=== PATIENT | female | born 1965 | race Caucasian/White ===

== ENCOUNTER 2019-08-14 06:50 | Inpatient (IN) | payer OTHER ==
[~2019-08-14] VITALS: Ht 61 cm; Wt 5.0 kg
== END 2019-08-15 07:40 | disposition home or self-care (01) | DRG 580 ==
LOC: CIR.AMB 06:50 → EDSTATUS 08:00 → CIR.AMB 08:00 → SURG 08:00 → CIR.AMB 12:00 → SURH 14:52
PROVIDERS: ADMIT Specialist
PROC: 07B50ZZ Excision of Right Axillary Lymphatic, Open Approach (ICD-10-PCS; 2019-08-14)
PROC: 0HBT0ZZ Excision of Right Breast, Open Approach (ICD-10-PCS; principal; 2019-08-14 12:00)
DX: C50.811 Malignant neoplasm of overlapping sites of right female breast (principal); C77.3 Secondary and unspecified malignant neoplasm of axilla and upper limb lymph nodes

== ENCOUNTER 2019-09-01 07:40 | Inpatient (IN) | payer OTHER ==
[~2019-09-01] VITALS: Ht 157.5 cm; Wt 61.2 kg
== END 2019-09-03 09:27 | disposition home or self-care (01) | DRG 582 ==
LOC: O/R 09-02 07:34 → EDSTATUS 09-02 09:45 → CIR.AMB 09-02 09:45 → SURH 09-02 14:31 → CIR.AMB 09-02 18:54 → SURH 09-03 09:27
PROVIDERS: ADMIT Specialist
PROC: 0HTT0ZZ Resection of Right Breast, Open Approach (ICD-10-PCS; principal; 2019-09-02 09:45)
DX: C50.411 Malignant neoplasm of upper-outer quadrant of right female breast (principal); C77.3 Secondary and unspecified malignant neoplasm of axilla and upper limb lymph nodes

== ENCOUNTER 2019-09-18 09:21 | Outpatient (CLI) | payer OTHER | END 2019-09-18 10:22 | disposition home or self-care (01) | LOC: NUCLEAR 09:21 | DX: C50.411 Malignant neoplasm of upper-outer quadrant of right female breast (principal); C77.3 Secondary and unspecified malignant neoplasm of axilla and upper limb lymph nodes; Z17.0 Estrogen receptor positive status [ER+] | CPT/HCPCS: 78815; A9552 ==